=== PATIENT | female | born 1970 | race Caucasian/White ===

== ENCOUNTER 2024-09-17 19:32 | Emergency (ER) | payer MEDICARE, MEDICAID, SELFPAY ==
[2024-09-17 19:43] VITALS: BP 123/81; PULSE 63; RESP 14; TEMP 36.6; O2SAT 95
[2024-09-17 19:50] VITALS: BP 117/92; PULSE 55; RESP 17; O2SAT 95
--- NOTE | 2024-09-17 19:52 | EKG_ITS ---
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
[2024-09-17 19:54] VITALS: PULSE 66; RESP 18; O2SAT 96; BMI 31.3
--- NOTE | 2024-09-17 20:07 | PC.NURSE ---
SPOKE TO DANIELA FROM POISON CONTROL STATED TO MONITOR PATIENT X 6HRS. GIVE NARCAN FOR RESP DISTRESS. IF WITHDRAWAL OCCURS GIVE ANOTHER SUBOXONE THEN MONITOR ANOTHER 6 HRS. LABS- TYLENOL, ASA, BLOOD ALCOHOL, AND UDS.
--- NOTE | 2024-09-17 21:09 | XR_ITS ---
Examination: CT brain head without contrast. 2-D sagittal coronal reconstructions Date and time of exam:September 17, 2024 2156 hrs. Comparison April 21, 2022 Indications: Clinical diagnosis overdose with altered mental status beginning 2 hours ago, history dizziness headaches beginning 10 days ago with hydrocephalus history and ventricular peritoneal shunt tube placement CTDI: vol (mGy):55.4 DLP: (mGycm):1100 Technique: Multiple CT axial sections of the brain have been obtained, 5 mm slice thickness. Contrast has not been administered. 2-D sagittal, coronal reconstructions have been obtained Low dose protocols were performed. One or more of the following dose reduction techniques were used; automated exposure control, adjustment of the mA and/or KV according to patient size, use of iterative reconstruction technique. Findings: Ventricular peritoneal shunt tube right lateral ventricle satisfactory position Ventricles are normal in size Intra-axial or extra-axial hemorrhage density is not seen. No mass effect or midline shift Basal cisterns are not remarkable. Fourth ventricle is midline. Cranial vault intact. Impression: Ventricles are normal in size Negative for acute hemorrhage, mass effect or midline shift If symptoms persist, consider brain MRI follow-up
--- NOTE | 2024-09-17 21:09 | EKG_ITS ---
[facility] Test Date: 2024-09-17 Pat Name: LISSET ZENDEJAS Department: Room: - Gender: Female Teenage Babysitter: : 1970 Requested By: Lashae Ashby Order Number: [id number] Reading MD: Lashae Ashby Measurements Intervals [place] Rate: 49 P: 103 [place]: 197 QRS: -16 QRSD: 96 T: -29 QT: 434 QTc: 393 Interpretive Statements SINUS BRADYCARDIA LOW QRS VOLTAGE IN PRECORDIAL LEADS [QRS DEFLECTION < 1.0 mV IN CHEST LEADS] POSSIBLE ANTERIOR MYOCARDIAL INFARCTION , OF INDETERMINATE AGE [30 ms Q WAVE IN V3/V4, OR R < 0.2 mV IN V4] Compared to ECG 09/17/2024 20:02:11 Low QRS voltage now present Sinus rhythm no longer present Myocardial infarct finding still present /store/S0/[id number]/[id number].pdf
--- NOTE | 2024-09-17 21:09 | XR_ITS ---
Examination: Upright AP chest single view Technique: Upright AP portable chest single view Exam date and time: September 17, 2024 2117 hrs. Comparison April 13, 2024 Indications: Onset shortness of breath today. Findings: Mild prominence left ventricle Bibasilar pneumonia No pulmonary edema Old resection left clavicle Impression: Bibasilar pneumonia
[2024-09-17 21:10] LABS: Basophils # (Auto) 0.1 Thou/mm3 (0.0-0.2); Basophils % (Auto) 1 % (0-2.5); Eosinophils # (Auto) 0.2 Thou/mm3 (0.0-0.5); Eosinophils % (Auto) 3 % (0-10); Hematocrit 31.5 % (36.0-46.0); Hemoglobin 10.1 g/dL (12.0-16.0); Immature Granulocytes % (Auto) 0 % (0-0); Immature Granulocytes Auto 0.02 Thou/mm3 (0.00-0.00); Lymphocytes # (Auto) 2.6 Thou/mm3 (1.0-4.8); Lymphocytes % (Auto) 36 % (10-50); Mean Corpuscular HGB Conc 32.1 g/dl (31.0-37.0); Mean Corpuscular Hemoglobin 29.3 pg (25.0-35.0); Mean Corpuscular Volume 91 fL (80-100); Monocytes # (Auto) 0.5 Thou/mm3 (0.0-0.8); Monocytes % (Auto) 7 % (0-12); Neutrophils # (Auto) 3.9 Thou/mm3 (1.8-7.7); Neutrophils % (Auto) 53 % (37-80); Nucleated Red Blood Cell % 0 /100 WBC (0); Platelet Count 305 Thou/mm3 (140-440); RDW Standard Deviation 58.4 fL (36.4-46.3); Red Blood Count 3.45 Miln/mm3 (4.00-5.20); White Blood Count 7.2 Thou/mm3 (3.6-11.0)
--- NOTE | 2024-09-17 21:10 | EDNOTE_ITS ---
ED Overdose RME/HPI General Chief Complaint: Overdose Stated Complaint: OVERDOSE Time Seen by Provider: 09/17/24 20:00 Arrival date/time: 09/17/24 19:32 This is a 54-year-old female that was brought into the hospital for possible overdose. Per patient family at the bedside patient is altered. Per patient family patient was normal earlier today. Patient has no focal deficits. Patient appears sleepy. Upon assessment patient able to answer questions just drowsy. There was a suspicion per family that patient took too much of her Suboxone. Per patient family members patient has been on Suboxone for almost 2 years. Per patient family they are starting want Suboxone that are gone and then there were 16 pills left. Poison control contacted by primary RN and orders were to monitor patient in department for 6 hours, give Narcan as needed and if patient starts having withdrawal symptoms give patient Suboxone but the time of watching patient starts again for 6 hours. Patient has a history of a femur fracture that happened in April 09, 2024. Patient had been flown to [place] where left knee and left femur were fixed. Patient ambulates with a walker and uses a wheelchair at home. Per patient family members patient has a history of high blood pressure, hypothyroidism and pseudotumor cerebri and has a shunt in place. Patient drowsy on upon assessment patient states she has been urinating more often. Patient denies dysuria. Patient denies fever chills. patient reports that she has nausea vomiting diarrhea but that is not uncommon for her. Patient reported some chest pain a couple days back but not complaining of chest pain at this time. Related Data Home Medications ?Medication ?Instructions ?Recorded ?Confirmed cyclobenzaprine 10 mg tablet 10 mg PO BID 04/11/24 06/14/24 docusate sodium 100 mg capsule 100 mg PO BID 04/11/24 06/14/24 (Colace) escitalopram oxalate 10 mg tablet 10 mg PO QDAY 04/11/24 06/14/24 (Lexapro) gabapentin 100 mg capsule 200 mg PO TIDWM 04/11/24 06/14/24 hydrocodone 10 mg-acetaminophen 1 tab PO Q4H PRN Pain (Scale Score 04/11/24 06/14/24 325 mg tablet 4-6) hydrocodone 5 mg-acetaminophen 325 1 tab PO Q4H PRN Pain (Scale Score 04/11/24 06/14/24 mg tablet 1-3) levothyroxine 100 mcg capsule 100 mcg PO ACBR 04/11/24 06/14/24 meclizine 25 mg tablet 25 mg PO Q6H PRN dizziness 04/11/24 06/14/24 multivitamin 1 tab PO QAM 04/11/24 06/14/24 Previous Rx's ?Medication ?Instructions ?Recorded acetaminophen 300 mg-codeine 30 mg 1 tab PO BID PRN pain #7 tabs 05/01/24 tablet apixaban 5 mg tablet (Eliquis) 5 mg PO Q12H #30 tabs 05/01/24 doxycycline hyclate 100 mg tablet 100 mg PO BID #14 tabs 09/17/24 Allergies Allergy/AdvReac Type Severity Reaction Status Date / Time amoxicillin Allergy Severe ANAPHYLAXIS Verified 06/14/24 08:13 ibuprofen Allergy Severe Swelling Verified 06/14/24 08:13 of Lip/Tongue/Throat naproxen [From Aleve] Allergy Severe Swelling Verified 06/14/24 08:13 of Lip/Tongue/Throat ALLI Allergy Severe Rash Uncoded 06/14/24 08:13 Review of Systems Review of Systems Systems Reviewed: All systems reviewed, normal except as documented Past Medical History Past Medical History CARDIAC: Positive Hypertension; Negative Cardiac Disorders or Congestive Heart Failure RESPIRATORY: Negative Chronic Obstructive Pulmonary Disease (COPD) or Asthma GENITOURINARY: Negative Renal Disease ENDOCRINE: Negative Diabetes Mellitus Type 1 or Diabetes Mellitus Type 2 HEMATOLOGIC: Negative Sickle Cell Disease OTHER HISTORY: Positive Blood Transfusions Surgical History SURGICAL: Positive Open Reduction Internal Fixation (Left Femur) Social History SMOKING STATUS: Never smoker ED Exam General General appearance: Present alert and in no apparent distress Head Head exam: Present atraumatic Eye Eye exam: Present normal appearance, PERRL and EOMI ENT ENT exam: Present normal exam, normal oropharynx and mucous membranes moist Neck Neck exam: Present normal inspection, full ROM and trachea midline Chest Chest inspection: Present normal inspection and symmetric chest wall rise Respiratory Respiratory exam: Present normal lung sounds bilaterally Cardiovascular Cardiovascular exam: Present regular rate, normal rhythm and normal heart sounds Abdominal Exam Abdominal exam: Present soft and other (soft nontender ) Extremities Exam Extremities exam: Present full ROM Back Exam Back exam: Present normal inspection and full ROM Neurological Exam Neurological exam: Present alert and oriented X3 Psychiatric Psychiatric exam: Present normal affect and normal mood Skin Skin exam: Present warm, dry, intact and normal color Course Quality Measures none Orders Category Date Time Status EKG (ED ONLY) *Do not use* NOW Care 09/17/24 19:52 Completed EKG (ED ONLY) *Do not use* NOW Care 09/17/24 21:[address] head/brain wo con Stat Exams 09/17/24 21:09 Completed EKG (ED Only) Stat Exams 09/17/24 19:52 Draft EKG (ED Only) Stat Exams 09/17/24 21:09 Draft XR chest 1V Stat Exams 09/17/24 21:09 Completed Ammonia Stat Lab 09/17/24 20:58 Completed BNP [B-Type Natriuretic Peptide] Stat Lab 09/17/24 20:58 Completed CBC Stat Lab 09/17/24 20:58 Completed Comprehensive Metabolic Panel Stat Lab 09/17/24 20:58 Completed Drug Screen,Urine Stat Lab 09/17/24 21:36 Completed Salicylate Stat Lab 09/17/24 20:58 Completed Troponin I Stat Lab 09/17/24 20:58 Completed Urinalysis, C/S if Indicated Stat Lab 09/17/24 21:35 Completed Acetaminophen Tab [Tylenol ES Tab] Med 09/17/24 20:14 Discontinued 1,000 mg PO X1 ONE Azithromycin Po [Zithromax PO] Med 09/17/24 23:13 Discontinued 500 mg PO X1 ONE Doxycycline [Vibramycin] Med 09/17/24 23:22 Discontinued 100 mg PO X1 ONE Vital Signs Vital signs: Vital Signs Temperature 97.9 F 09/17/24 19:43 Pulse Rate 63 09/17/24 19:43 Respiratory Rate 14 09/17/24 19:43 Blood Pressure 123/81 09/17/24 19:43 Pulse Oximetry (%) 95 09/17/24 19:43 Oxygen Delivery Method Room Air 09/17/24 19:43 Procedures -ED EKG Interpretation #1: Date of EK09/17/24 Time of EK:31 Rate: 49 Interpretation: Interpreted by me (sinus bradycardia, flipped t waves in anterior leads) EKG Impression: No ectopy, Normal QRS and Normal intervals Overdose MDM Narrative MDM Narrative:: This is a 54-year-old female that was brought into the hospital for possible overdose. Per patient family at the bedside patient is altered. Per patient family patient was normal earlier today. Patient has no focal deficits. Patient appears sleepy. Upon assessment patient able to answer questions just drowsy. There was a suspicion per family that patient took too much of her Suboxone. Per patient family members patient has been on Suboxone for almost 2 years. Per patient family they are starting want Suboxone that are gone and then there were 16 pills left. Poison control contacted by primary RN and orders were to monitor patient in department for 6 hours, give Narcan as needed and if patient starts having withdrawal symptoms give patient Suboxone but the time of watching patient starts again for 6 hours. Patient has a history of a femur fracture that happened in April 09, 2024. Patient had been flown to [place] where left knee and left femur were fixed. Patient ambulates with a walker and uses a wheelchair at home. Per patient family members patient has a history of high blood pressure, hypothyroidism and pseudotumor cerebri and has a shunt in place. Patient drowsy on upon assessment patient states she has been urinating more often. Patient denies dysuria. Patient denies fever chills. patient reports that she has nausea vomiting diarrhea but that is not uncommon for her. Patient reported some chest pain a couple days back but not complaining of chest pain at this time. CT head: Findings: Ventricular peritoneal shunt tube right lateral ventricle satisfactory position Ventricles are normal in size Intra-axial or extra-axial hemorrhage density is not seen. No mass effect or midline shift Basal cisterns are not remarkable. Fourth ventricle is midline. Cranial vault intact. Impression: Ventricles are normal in size Negative for acute hemorrhage, mass effect or midline shift If symptoms persist, consider brain MRI follow-up Chest x ray: Findings: Mild prominence left ventricle Bibasilar pneumonia No pulmonary edema Old resection left clavicle Impression: Bibasilar pneumonia Labs unremarkable. Potassium slightly low at 3.3. Pt positive for opiates in urine. Chest x ray shows pneumonia. Will tx for pneumonia. Will observe patient as instructed by posion control. Patient data External records reviewed:: [facility] previous records Clinical information provided by:: patient Social determinants that could affect healthcare access:: substance use Patient has the following chronic illnesses:: see note How is presenting disease/condition affected by chronic disease/condition?: exacerbated by Evaluation data The following diagnostics were reviewed and interpreted by me:: lab results, radiology exam(s) and EKG tracing(s) Lab and/or radiology exams considered but not ordered:: none Interpretation Summary: see note Medications / Prescriptions Medications or Prescriptions considered but not ordered:: none Medication administrations:: Medication Administration History Discontinued Medications Acetaminophen (Acetaminophen 500 Mg Tablet) 1,000 mg PO X1 ONE Stop: 09/17/24 20:15 Last Admin: 09/17/24 21:44 Dose: 1,000 mg Documented By: VOLODYMYR Azithromycin (Azithromycin 250 Mg Tablet) 500 mg PO X1 ONE Stop: 09/17/24 23:14 Last Admin: 09/17/24 23:23 Dose: Not Given Documented By: VOLODYMYR Non-Admin Reason: Discontinued Doxycycline Hyclate (Doxycycline 100 Mg Tablet) 100 mg PO X1 ONE Stop: 09/17/24 23:23 Last Admin: 09/17/24 23:32 Dose: 100 mg Documented By: VOLODYMYR see [facility] Consultations Consultation(s) initiated? (list below): No Diagnosis Overdose Differential Diagnosis: suicide attempt by multiple drug overdose, poisoning by opiate or related narcotic and other (stroke, mi, pneumonia ) Most likely diagnosis given after review of the tests above:: pneumonia Admission Indicated Admission indicated?: not indicated Admission Request Was there a request for admission?: No Disposition Plan Disposition Plan: Discharge Discharge Attestation Discharge Attestation: The patient and all family members were given an opportunity to ask questions and understood the discharge instructions. Discharge instructions specifically effects, indications for sooner follow up or return to the emergency department, and the expected course of current diagnosis. Patient condition: Stable Discharge Plan Plan Patient Disposition: HOME (Self Care) Patient condition on transfer: Stable Prescriptions/Referrals Prescriptions/Med Rec: New doxycycline hyclate 100 mg tablet 100 mg PO BID Qty: 14 0RF No Action cyclobenzaprine 10 mg Tablet 10 mg PO BID docusate sodium [Colace] 100 mg Capsule 100 mg PO BID gabapentin 100 mg Capsule 200 mg PO TIDWM escitalopram oxalate [Lexapro] 10 mg Tablet 10 mg PO QDAY hydrocodone-acetaminophen 5-325 mg Tablet 1 tab PO Q4H PRN (Reason: Pain (Scale Score 1-3)) hydrocodone-acetaminophen 10-325 mg Tablet 1 tab PO Q4H PRN (Reason: Pain (Scale Score 4-6)) multivitamin Tablet 1 tab PO QAM meclizine 25 mg tablet 25 mg PO Q6H PRN (Reason: dizziness) levothyroxine 100 mcg capsule 100 mcg PO ACBR Eliquis 5 mg tablet 5 mg PO Q12H Qty: 30 1RF acetaminophen-codeine 300-30 mg tablet 1 tab PO BID PRN (Reason: pain) Qty: 7 0RF Referrals: Yvette Reyes FNP [Primary Care Provider] - In 1 week Problem List Clinical Impression: Pneumonia Patient/Caregiver Discharge Instructions Discharge Activity: activity as tolerated Education Materials: ED Pneumonia (Adult) Additional Instructions: Please follow-up with primary provider in 1 to 2 days. Come back to the emergency room if symptoms change or worsen. Print Language: Singaporean Stand Alone Forms: Erica Award Info., Patient Portal Info Letter PA/DEVELOPMENT WRITER Supervising Physician MYLENE/MIGUEL Supervising Physician: donald
[2024-09-17 21:28] VITALS: BP 146/87; PULSE 53; RESP 16; O2SAT 95
[2024-09-17 21:30] LABS: Ammonia 14 uMol/L (11-32)
[2024-09-17 21:38] LABS: Alanine Aminotransferase < 7 U/L (10-49); Albumin, Serum 3.8 gm/dL (3.5-5.0); Albumin/Globulin Ratio 1.5 (1.2-2.2); Alkaline Phosphatase 111 U/L (46-116); Anion Gap 4 (7-16); Aspartate Amino Transferase 12 U/L (0-34); BUN/Creatinine Ratio 8 Ratio (12-20); Bilirubin,Total 0.4 mg/dL (0.3-1.2); Blood Urea Nitrogen 7 mg/dL (9-23); Calcium 8.9 mg/dL (8.3-10.6); Calcium (Corrected) 9.1 mg/dL (8.5-10.1); Carbon Dioxide 31.3 mMol/L (20.0-31.0); Chloride 104 mMol/L (98-107); Creatinine (Component) 0.9 mg/dL (0.6-1.3); Estimated Creatinine Clearance 81.7 mL/min (>60); Globulin 2.6 gm/dL (2.3-3.5); Glucose 89 mg/dL (74-106); Osmolality,Calculated 274 (275-295); Potassium 3.3 mMol/L (3.4-5.1); Salicylate < 3.0 mg/dL; Sodium 139 mMol/L (136-145); Total Protein 6.4 gm/dL (5.7-8.2); Troponin I < 0.002 ng/mL (0.0-0.045); eGFR > 60 See Note
[2024-09-17 21:40] LABS: Collection Type, Urine Voided
[2024-09-17] MEDS: ACETAMINOPHEN 500 MG TABLET 1000 MG PO (21:44)
[2024-09-17 21:45] LABS: Bilirubin,Urine Negative (Negative); Blood,Urine Negative (Negative); Clarity,Urine Clear (Clear/Hazy); Color,Urine Colorless (Lt Yel-Yel); Culture Indicated,Urine Not Indicated; Glucose, Urine Negative (Negative); Ketones,Urine Negative (Negative); Leukocyte Esterase,Urine Negative (Negative); Nitrite,Urine Negative (Negative); Protein,Urine Negative (Neg - Trace); RBC,Urine < 1 /hpf (0-3); Specific Gravity,Urine 1.005 (1.001-1.035); Squamous Epithelial Cell,Urine < 1 /hpf (0-5); Urobilinogen,Urine Negative mg/dL (0.0-1.0); WBC,Urine 1 /hpf (0-5)
[2024-09-17 21:51] LABS: B-Type Natriuretic Peptide 39 pg/mL (0-100)
[2024-09-17 22:03] VITALS: BP 154/92; PULSE 64; RESP 17; O2SAT 97
[2024-09-17 22:07] LABS: Amphetamine/Methamp Scrn,U Negative (Negative); Barbiturate Screen,Urine Negative (Negative); Benzodiazepines Screen,Urine Negative (Negative); Benzoylecgonine Screen, Ur Negative (Negative); Fentanyl Screen,Urine Negative (Negative); Opiate Screen,Urine Positive (Negative); THC Screen,Urine Negative (Negative)
[2024-09-17 23:00] VITALS: BP 133/80; PULSE 49; RESP 12; O2SAT 97
--- NOTE | 2024-09-17 23:14 | PD.EDADDENDU ---
Emergency Room Addendum Addendum Narrative: 2300: Care assumed from Lashae Ashby NP Past medical, surgical, social and family history reviewed. Vitals and home medications reviewed. Results and treatment plan discussed. I will assume the care of the patient at this time and will follow the patient, pending observation. Please refer to the emergency department record for history and examination from initial visit. OBSERVATION NOTE: The patient was placed in ED observation care at 09/17/2024 at 2300 The patient was placed in ED observation care because of pending transfer.. The patients past medical history, social history, and family history were reviewed. The plan of care will include serial examinations. Patient was previously observed for 2 hours by the previous provider.
[2024-09-17] MEDS: DOXYCYCLINE 100 MG TABLET PO (23:32)
[2024-09-18] VITALS: BP 134/79; PULSE 45; RESP 15; O2SAT 95
[2024-09-18 01:00] VITALS: BP 108/78; PULSE 48; RESP 13; O2SAT 95
[2024-09-18 01:30] VITALS: BP 122/70; PULSE 73; RESP 18; O2SAT 97
== END 2024-09-18 01:54 | disposition home or self-care (01) ==
PROVIDERS: Nurse Practitioner Family; Emergency Provider Emergency Medicine; PCP Nurse Practitioner Family
DX: T50.7X1A Poisoning by analeptics and opioid receptor antagonists, accidental (unintentional), initial encounter (principal); R41.82 Altered mental status, unspecified; J18.9 Pneumonia, unspecified organism; R00.1 Bradycardia, unspecified
CPT/HCPCS: 36415; 70450; 71045; 80053; 80307; 80329; 81001; 82140; 83880; 84484; 85025; 93005; 96127; 99284; A9270; G0480

== ENCOUNTER 2024-11-01 09:22 | Outpatient (AMB) | payer MEDICARE, MEDICAID, SELFPAY ==
[2024-11-01 10:21] VITALS: BP 134/86; PULSE 67; RESP 19; TEMP 36.6; O2SAT 98; BMI 37.9
--- NOTE | 2024-11-01 10:21 | ORTHONT_ITS ---
Vital signs 11/01/24 10:21 Height 1.7 m Height Method Stated Weight 109.883 kg Weight Measurement Method Standing Scale BMI 37.9 BP 134/86 H Blood Pressure Source Automatic Cuff Blood Pressure Location Left Upper Arm Position Sitting Respiration 19 Pulse 67 Pulse Source Monitor Temp 97.8 F Temp Source Temporal Artery Scan Pulse Oximetry (%) 98 Oxygen Delivery Method Room Air Med/Allergies Allergies & Medications Allergies amoxicillin Allergy (Severe, Verified 11/01/24 10:22) ANAPHYLAXIS ibuprofen Allergy (Severe, Verified 11/01/24 10:22) Swelling of Lip/Tongue/Throat naproxen [From Aleve] Allergy (Severe, Verified 11/01/24 10:22) Swelling of Lip/Tongue/Throat ALLI Allergy (Severe, Uncoded 11/01/24 10:22) Rash Medication Reconciliation cyclobenzaprine 10 mg tablet 10 mg PO BID 04/11/24 [History Confirmed 11/01/24] docusate sodium 100 mg capsule (Colace) 100 mg PO BID 04/11/24 [History Confirmed 11/01/24] escitalopram oxalate 10 mg tablet (Lexapro) 10 mg PO QDAY 04/11/24 [History Confirmed 11/01/24] gabapentin 100 mg capsule 200 mg PO TIDWM 04/11/24 [History Confirmed 11/01/24] hydrocodone 10 mg-acetaminophen 325 mg tablet 1 tab PO Q4H PRN Pain (Scale Score 4-6) 04/11/24 [History Confirmed 11/01/24] hydrocodone 5 mg-acetaminophen 325 mg tablet 1 tab PO Q4H PRN Pain (Scale Score 1-3) 04/11/24 [History Confirmed 11/01/24] levothyroxine 100 mcg capsule 100 mcg PO ACBR 04/11/24 [History Confirmed 11/01/24] meclizine 25 mg tablet 25 mg PO Q6H PRN dizziness 04/11/24 [History Confirmed 11/01/24] multivitamin 1 tab PO QAM 04/11/24 [History Confirmed 11/01/24] acetaminophen 300 mg-codeine 30 mg tablet 1 tab PO BID PRN pain #7 tabs 05/01/24 [Rx Confirmed 11/01/24] apixaban 5 mg tablet (Eliquis) 5 mg PO Q12H #30 tabs 05/01/24 [Rx Confirmed 11/01/24] doxycycline hyclate 100 mg tablet 100 mg PO BID #14 tabs 09/17/24 [Rx Confirmed 11/01/24] Exam Exam Patient is in no acute distress and is cooperative with the examination today. Patient has a normal mood and affect. Breathing is nonlabored. In no respiratory distress. Bilateral extremities were evaluated and demonstrates sensation intact to light touch. Palpable pedal pulses are present. No significant edema is present. Left hip and knee incisions are clean dry intact. Range of motion is 5 to 80 degrees. Sensations intact to light touch Assessment and Plan Problem List (1) Femur fracture: Qualifiers: Femur location: shaft Status: Acute Plan: Patient is a 54-year-old female with a left distal femur fracture status post open reduction total fixation and nail plate combo. He has been weightbearing as tolerated. She is doing well. We recommend continued use of a walker. She should start outpatient physical therapy at this time. She never started physical therapy because she went to [place]. Will get new x- rays as it Has been a while since we last saw x-rays. We will see her back in approximately 2 months Office Procedures GNS Level of Care Nursing/Assessment Patient Status: Established Patient Nursing Assessment/Reassesment: Medication Reconciliation, Update PMH in EMR and Vital Signs Coordination of Care: Complex Care and Chronic Disease 1-5, Education Complex Pt/Fam, Consent,records obtained, informed consent, 1 Ins Authorization, Results/Orders obtained and Staff clarify orders Established Patient Charge Established Patient Point Assignment: 110 Established Patient Point Charge: EP Level 3 (80-115) MA Intake Visit Data Collection New Patient or Established: Established Patient (seen at [facility] within 3 years) Reason for Visit:: FOLLOW UP FEMUR Seen by Clinical Staff ONLY (RN/MA): No Remedial [place] Required: No PCP or OBGYN visit in last 3 months: Yes Hx Now: No Do You Feel Safe at Home: Yes Authorities Contacted: N/A Questionairres Past Medical History Past Medical History Have you ever been diagnosed with any of the following: Cardiology Problems Congestive Heart Failure: No Hypertension: Yes Respiratory Problems Chronic Obstructive Pulmonary Disease (COPD): No Asthma: No Smoking: No Smoking Exposure: No Genital/Urinary Problems Renal Disease: No Endocrine Problems Diabetes Mellitus Type 1: No Diabetes Mellitus Type 2: No Blood Problems Sickle Cell Disease: No Other Problems Blood Transfusions: Yes Subjective Visit Visit for: follow up visit Immunization / Flu Flu Vaccine in the Last 12 Months: No Flu Vaccine Exclusion Criteria: Refused by Patient History of Present Illness Chief complaint: Left hip pain and leg pain Cindy is a pleasant 54-year-old female with left hip and thigh and knee pain. She had a extensive surgery 6 months ago including a nail plate combo for a comminuted distal femur fracture. She has been in [place] for a while since we last saw her. She does not have new x-rays and we will obtain them today. She is walking with a limp and Has a Trendelenburg gait Pain Pain level (0-10): 5 Pain duration: ALL DAY Pain location: groin, inside (medial), outside (lateral) and anterior Pain quality: sharp, dull, aching and other (specify) (THROBBINH) Pain timing: increases with activity and stairs Associated signs & symptoms: weakness and stiffness Ambulatory data Ambulatory device: walker Treatments Improvement with previous injections: No Improvement with PT: No Improvement with NSAIDS: no Review of Systems Review of Systems: All systems negative unless otherwise noted in HPI.
== END 2024-11-01 10:48 | disposition home or self-care (01) ==
LOC: HODSRG 09:22
PROVIDERS: PCP Nurse Practitioner Family; Referring Provider Nurse Practitioner Family; Supervising Provider Orthopaedic Surgery Adult Reconstructive Orthopaedic Surgery; Visit Provider Orthopaedic Surgery Adult Reconstructive Orthopaedic Surgery
DX: S72.402D Unspecified fracture of lower end of left femur, subsequent encounter for closed fracture with routine healing (principal); X58.XXXD Exposure to other specified factors, subsequent encounter; Z98.890 Other specified postprocedural states; M25.552 Pain in left hip; M25.562 Pain in left knee; I10 Essential (primary) hypertension
CPT/HCPCS: 99213; G0463

== ENCOUNTER → 2024-11-08 | Outpatient (CLI) | payer MEDICARE, MEDICAID, SELFPAY ==
--- NOTE | 2024-11-08 10:20 | XR_ITS ---
Examination: Left knee 4 views TECHNIQUE: AP oblique lateral axial left knee 4 views Exam date and time: October 08, 2025 1105 hours INDICATIONS: Femur surgery 6 months ago with increasing knee pain the last 2 months FINDINGS: Advanced tricompartment osteoarthrosis left knee, severe narrowing medial joint space [id number] Significant healing comminuted supracondylar fracture distal femur with satisfactory position orthopedic hardware No acute fracture IMPRESSION: Advanced tricompartment osteoarthritis, severe narrowing medial joint space
--- NOTE | 2024-11-08 10:20 | XR_ITS ---
Examination: Left femur 2 views Technique one AP lateral left femur 2 views Exam date and time: November 08, 2024 1111 hours INDICATIONS: History femur fracture post surgery operative reduction internal fixation tibial fracture 6 months ago increasing pain in the femur the last 2 months FINDINGS: Postop reduction internal fixation comminuted supracondylar fracture distal femoral shaft Significant healing Satisfactory alignment Satisfactory position orthopedic hardware Advanced osteoarthritis medial joint space IMPRESSION: Significant healing supracondylar comminuted fracture distal femur with satisfactory alignment
[2024-11-08 13:03] LABS: Free T4 (Free Thyroxine) 0.75 ng/dL (0.89-1.76); Thyroid Stimulating Hormone 33.92 uIU/mL (0.55-4.78)
== END | disposition home or self-care (01) ==
PROVIDERS: PCP Nurse Practitioner Family; Referring Provider Orthopaedic Surgery Adult Reconstructive Orthopaedic Surgery; Visit Provider Radiology Diagnostic Radiology
DX: M16.12 Unilateral primary osteoarthritis, left hip (principal)
CPT/HCPCS: 36415; 73552; 73564; 84439; 84443

== ENCOUNTER 2024-11-11 13:47 | Outpatient (AMB) | payer MEDICARE, MEDICAID, SELFPAY ==
[2024-11-11 14:02] VITALS: BP 148/96; PULSE 70; RESP 18; TEMP 35.4; O2SAT 97; BMI 37.5
--- NOTE | 2024-11-11 14:02 | ORTHONT_ITS ---
Vital signs 11/11/24 14:02 Height 1.7 m Height Method Stated Weight 108.55 kg Weight Measurement Method Standing Scale BMI 37.5 BP 148/96 H Blood Pressure Source Automatic Cuff Blood Pressure Location Right Upper Arm Position Sitting Respiration 18 Pulse 70 Pulse Source Monitor Temp 95.7 F L Temp Source Temporal Artery Scan Pulse Oximetry (%) 97 Oxygen Delivery Method Room Air Med/Allergies Allergies & Medications Allergies amoxicillin Allergy (Severe, Verified 11/11/24 14:04) ANAPHYLAXIS ibuprofen Allergy (Severe, Verified 11/11/24 14:04) Swelling of Lip/Tongue/Throat naproxen [From Aleve] Allergy (Severe, Verified 11/11/24 14:04) Swelling of Lip/Tongue/Throat ALLI Allergy (Severe, Uncoded 11/11/24 14:04) Rash Medication Reconciliation cyclobenzaprine 10 mg tablet 10 mg PO BID 04/11/24 [History Confirmed 11/11/24] escitalopram oxalate 10 mg tablet (Lexapro) 10 mg PO QDAY 04/11/24 [History Confirmed 11/11/24] gabapentin 100 mg capsule 200 mg PO TIDWM 04/11/24 [History Confirmed 11/11/24] hydrocodone 10 mg-acetaminophen 325 mg tablet 1 tab PO Q4H PRN Pain (Scale Score 4-6) 04/11/24 [History Confirmed 11/11/24] hydrocodone 5 mg-acetaminophen 325 mg tablet 1 tab PO Q4H PRN Pain (Scale Score 1-3) 04/11/24 [History Confirmed 11/11/24] levothyroxine 100 mcg capsule 100 mcg PO ACBR 04/11/24 [History Confirmed 11/11/24] meclizine 25 mg tablet 25 mg PO Q6H PRN dizziness 04/11/24 [History Confirmed 11/11/24] multivitamin 1 tab PO QAM 04/11/24 [History Confirmed 11/11/24] acetaminophen 300 mg-codeine 30 mg tablet 1 tab PO BID PRN pain #7 tabs 05/01/24 [Rx Confirmed 11/11/24] apixaban 5 mg tablet (Eliquis) 5 mg PO Q12H #30 tabs 05/01/24 [Rx Confirmed 11/11/24] doxycycline hyclate 100 mg tablet 100 mg PO BID #14 tabs 09/17/24 [Rx Confirmed 11/11/24] Exam Exam Patient is in no acute distress and is cooperative with the examination today. Patient has a normal mood and affect. Breathing is nonlabored. In no respiratory distress. Bilateral extremities were evaluated and demonstrates sensation intact to light touch. Palpable pedal pulses are present. No significant edema is present. Left hip and knee incisions are clean dry intact. Range of motion is 5 to 80 degrees. Sensations intact to light touch X-rays demonstrate a nail plate combo with good interval healing of the fracture site Assessment and Plan Problem List (1) Femur fracture: Qualifiers: Femur location: shaft Status: Acute Plan: Patient is a 54-year-old female with a left distal femur fracture status post open reduction total fixation and nail plate combo. He has been weightbearing as tolerated. She is doing well. We recommend continued use of a walker. She should start outpatient physical therapy at this time. She never started physical therapy because she went to [place]. Her x-rays look good and we will start her with physical therapy. She does have a Trendelenburg gait Office Procedures GNS Level of Care Nursing/Assessment Patient Status: Established Patient Nursing Assessment/Reassesment: Medication Reconciliation, Update PMH in EMR and Vital Signs Coordination of Care: Complex Care and Chronic Disease 1-5, Education Complex Pt/Fam, Consent,records obtained, informed consent, Results/Orders obtained and Staff clarify orders Established Patient Charge Established Patient Point Assignment: 95 Established Patient Point Charge: EP Level 2 (40-75) Questionairres Past Medical History Past Medical History Have you ever been diagnosed with any of the following: Cardiology Problems Congestive Heart Failure: No Hypertension: Yes Respiratory Problems Chronic Obstructive Pulmonary Disease (COPD): No Asthma: No Smoking: No Smoking Exposure: No Genital/Urinary Problems Renal Disease: No Endocrine Problems Diabetes Mellitus Type 1: No Diabetes Mellitus Type 2: No Blood Problems Sickle Cell Disease: No Other Problems Blood Transfusions: Yes Subjective Visit Visit for: follow up visit Immunization / Flu Flu Vaccine in the Last 12 Months: Yes Flu Vaccine Exclusion Criteria: Already Received History of Present Illness Chief complaint: F/U XRAYS RESULTS Cindy is a pleasant 54-year-old female with left hip and thigh and knee pain. She had a extensive surgery 6 months ago including a nail plate combo for a comminuted distal femur fracture. She has been in [place] for a while since we last saw her. She does not have new x-rays and we will obtain them today. She is walking with a limp and Has a Trendelenburg gait Pain Pain level (0-10): 5 Pain duration: CONSTANT Pain location: inside (medial) Pain quality: sharp, dull and aching Pain timing: night, increases with activity and stairs Associated signs & symptoms: none Ambulatory data Ambulatory device: none Treatments Improvement with previous injections: No Improvement with PT: No Improvement with NSAIDS: n/a Review of Systems Review of Systems: All systems negative unless otherwise noted in HPI.
== END 2024-11-11 14:11 | disposition home or self-care (01) ==
LOC: HODSRG 13:47
PROVIDERS: PCP Nurse Practitioner Family; Referring Provider Nurse Practitioner Family; Supervising Provider Orthopaedic Surgery Adult Reconstructive Orthopaedic Surgery; Visit Provider Orthopaedic Surgery Adult Reconstructive Orthopaedic Surgery
DX: S72.492D Other fracture of lower end of left femur, subsequent encounter for closed fracture with routine healing (principal); X58.XXXD Exposure to other specified factors, subsequent encounter; Z98.890 Other specified postprocedural states; R26.89 Other abnormalities of gait and mobility; I10 Essential (primary) hypertension
CPT/HCPCS: 99212; G0463

== ENCOUNTER 2024-12-22 13:27 | Outpatient (AMB) | payer MEDICARE, MEDICAID, SELFPAY ==
--- NOTE | 2024-12-22 13:51 | PD.ORTHCLVIS ---
Vital signs 12/22/24 13:52 Height 1.7 m Height Method Stated Weight 102.597 kg Weight Measurement Method Standing Scale BMI 35.4 BP 122/84 Blood Pressure Source Automatic Cuff Blood Pressure Location Left Upper Arm Position Sitting Respiration 19 Pulse 73 Pulse Source Monitor Temp 96.5 F L Temp Source Temporal Artery Scan Pulse Oximetry (%) 96 Oxygen Delivery Method Room Air Med/Allergies Allergies & Medications Allergies amoxicillin Allergy (Severe, Verified 12/22/24 13:53) ANAPHYLAXIS ibuprofen Allergy (Severe, Verified 12/22/24 13:53) Swelling of Lip/Tongue/Throat naproxen (From Aleve) Allergy (Severe, Verified 12/22/24 13:53) Swelling of Lip/Tongue/Throat ALLI Allergy (Severe, Uncoded 12/22/24 13:53) Rash Medication Reconciliation cyclobenzaprine 10 mg tablet 10 mg PO BID 04/11/24 [History Confirmed 12/22/24] escitalopram oxalate 10 mg tablet (Lexapro) 10 mg PO QDAY 04/11/24 [History Confirmed 12/22/24] gabapentin 100 mg capsule 200 mg PO TIDWM 04/11/24 [History Confirmed 12/22/24] hydrocodone 10 mg-acetaminophen 325 mg tablet 1 tab PO Q4H PRN Pain (Scale Score 4-6) 04/11/24 [History Confirmed 12/22/24] hydrocodone 5 mg-acetaminophen 325 mg tablet 1 tab PO Q4H PRN Pain (Scale Score 1-3) 04/11/24 [History Confirmed 12/22/24] levothyroxine 100 mcg capsule 100 mcg PO ACBR 04/11/24 [History Confirmed 12/22/24] meclizine 25 mg tablet 25 mg PO Q6H PRN dizziness 04/11/24 [History Confirmed 12/22/24] multivitamin 1 tab PO QAM 04/11/24 [History Confirmed 12/22/24] acetaminophen 300 mg-codeine 30 mg tablet 1 tab PO BID PRN pain #7 tabs 05/01/24 [Rx Confirmed 12/22/24] apixaban 5 mg tablet (Eliquis) 5 mg PO Q12H #30 tabs 05/01/24 [Rx Confirmed 12/22/24] doxycycline hyclate 100 mg tablet 100 mg PO BID #14 tabs 09/17/24 [Rx Confirmed 12/22/24] Exam Exam Patient is in no acute distress and is cooperative with the examination today. Patient has a normal mood and affect. Breathing is nonlabored. In no respiratory distress. Bilateral extremities were evaluated and demonstrates sensation intact to light touch. Palpable pedal pulses are present. No significant edema is present. Left hip and knee incisions are clean dry intact. Range of motion is 5 to 80 degrees. Sensations intact to light touch X-rays demonstrate a nail plate combo with good interval healing of the fracture site Assessment and Plan Problem List (1) Femur fracture: Qualifiers: Femur location: shaft Status: Acute Plan: Patient is a 54-year-old female with a left distal femur fracture status post open reduction total fixation and nail plate combo. SHe has been weightbearing as tolerated. She is doing well and is not using a walker or cane. She would like a cortisone injection today. Recommend knee cortisone injection as patient would like to proceed with conservative treatment at this time. The risks and benefits of the procedure were reviewed with the patient and patient gave verbal consent to continue with the procedure. Procedure: performed by Dr. Hernandez Using sterile technique the left knee was thoroughly prepped with alcohol, and approximately 1 cc of Kenalog 40 mg/mL and 4 cc of 1% lidocaine was injected without resistance into the medial tibial femoral joint space. The patient tolerated the procedure. Office Procedures GNS Level of Care Nursing/Assessment Patient Status: Established Patient Nursing Assessment/Reassesment: Medication Reconciliation, Update PMH in EMR and Vital Signs Coordination of Care: Complex Care and Chronic Disease 1-5, Education Complex Pt/Fam, Consent,records obtained, informed consent, Results/Orders obtained and Staff clarify orders Established Patient Charge Established Patient Point Assignment: 95 Established Patient Point Charge: EP Level 3 (80-115) Surgical Proc/IM SQ injection Major Surgical Procedure: Yes (KNEE INJECTION ) Medication Given Medication Given Medication Given: Yes Documented Dose Given: 4 Route: Infiitration Medication Given Medication Given Medication Given: Yes Route: Infiitration Office Meds Xylocaine 10 mg/mL (1 %) injection solution Performing Provider: Chauncey Hernandez MD Performing Location: [facility] Administered by: Chauncey Hernandez MD on 12/22/24 14:08 Dose Route Admin Location Dispensed Lot Number Expiration Date [facility] Fire Prevention Engineer 20 mL Infiltration 20 mL [id number] [facility] triamcinolone acetonide 40 mg/mL suspension for injection Performing Provider: Chauncey Hernandez MD Performing Location: [facility] Administered by: Chauncey Hernandez MD on 12/22/24 14:08 Dose Route Admin Location Dispensed Lot Number Expiration Date [facility] Fire Prevention Engineer 40 mg intra-articular KNEE 1 mL [id number] 03/02/26 7677-9842-44 [employer]EVA PARENTERAL MA Intake Visit Data Collection New Patient or Established: Established Patient (seen at [facility] within 3 years) Reason for Visit:: 6 WEEK F/U FEMUR FRACTURE Seen by Clinical Staff ONLY (RN/MA): No Station Tender Required: No PCP or OBGYN visit in last 3 months: Yes Hx Now: No Do You Feel Safe at Home: Yes Authorities Contacted: N/A Questionairres Past Medical History Past Medical History Have you ever been diagnosed with any of the following: Cardiology Problems Congestive Heart Failure: No Hypertension: Yes Respiratory Problems Chronic Obstructive Pulmonary Disease (COPD): No Asthma: No Smoking: No Smoking Exposure: No Genital/Urinary Problems Renal Disease: No Endocrine Problems Diabetes Mellitus Type 1: No Diabetes Mellitus Type 2: No Blood Problems Sickle Cell Disease: No Other Problems Blood Transfusions: Yes Subjective Visit Visit for: follow up visit Immunization / Flu Flu Vaccine in the Last 12 Months: No Flu Vaccine Exclusion Criteria: No Exclusion Criteria History of Present Illness Chief complaint: F/U XRAYS RESULTS Cindy is a pleasant 54-year-old female with left hip and thigh and knee pain. She had a extensive surgery 8 months ago including a nail plate combo for a comminuted distal femur fracture. She has been in [place] for a while since we last saw her. She has been doing well with pt Pain Pain level (0-10): 7 Pain duration: WITH MOVEMENT Pain location: anterior (KNEE) Pain quality: aching Pain timing: increases with activity Associated signs & symptoms: none Ambulatory data Ambulatory device: none Treatments Improvement with previous injections: No Improvement with PT: No Improvement with NSAIDS: no Review of Systems Review of Systems: All systems negative unless otherwise noted in HPI.
[2024-12-22 13:52] VITALS: BP 122/84; PULSE 73; RESP 19; TEMP 35.8; O2SAT 96; BMI 35.4
== END 2024-12-22 14:27 | disposition home or self-care (01) ==
LOC: HODSRG 13:27
PROVIDERS: PCP Nurse Practitioner Family; Referring Provider Nurse Practitioner Family; Supervising Provider Orthopaedic Surgery Adult Reconstructive Orthopaedic Surgery; Visit Provider Orthopaedic Surgery Adult Reconstructive Orthopaedic Surgery
DX: S72.402D Unspecified fracture of lower end of left femur, subsequent encounter for closed fracture with routine healing (principal); X58.XXXD Exposure to other specified factors, subsequent encounter; I10 Essential (primary) hypertension
CPT/HCPCS: 20610; 99213; J3301; J3490; G0463

== ENCOUNTER → 2025-02-03 | Outpatient (CLI) | payer MEDICARE, MEDICAID, SELFPAY ==
--- NOTE | 2025-02-03 10:29 | XR_ITS ---
Examination: Tibia-Fibula, left , 2 views Technique: Tibia-fibula AP lateral 2 views Date and time of exam: February 03, 2025 1121 hours INDICATIONS: Lower leg pain beginning 3 days ago FINDINGS: Postsurgical defects in the proximal and mid tibial shaft Moderate tricompartment knee osteoarthritis No fracture of the lower leg No cortical bone destruction IMPRESSION: No fracture or cortical bone destruction
--- NOTE | 2025-02-03 10:29 | XR_ITS ---
Examination: Left femur 2 views Technique one AP lateral right femur 2 views Exam date and time: February 03, 2025 1123 hours Comparison November 08, 2024 INDICATIONS: History femur fracture postop reduction internal fixation April 2024 FINDINGS: Moderate osteopenia Mild narrowing left hip joint Comminuted fractures distal femoral shaft with stable and satisfactory alignment, significant healing Orthopedic hardware including intramedullary elen satisfactory position Advanced tricompartment knee osteoarthritis IMPRESSION: Healed fractures distal femoral shaft with stable and satisfactory alignment Advanced left knee tricompartment osteophytes arthritis
--- NOTE | 2025-02-03 10:29 | XR_ITS ---
Examination: Left knee 4 views TECHNIQUE: Standing PA lateral oblique axial left knee 4 views Exam date and time: February 03, 2025 1135 hours INDICATIONS: Left knee pain beginning 3 days ago, history femur surgery April 2024 FINDINGS: Advanced tricompartment osteoarthritis left knee, most severe medial patellofemoral joints Status post operative reduction internal fixation fracture distal femur with significant healing Orthopedic hardware satisfactory position No acute fracture IMPRESSION: Advanced left knee tricompartment osteoarthritis
== END | disposition home or self-care (01) ==
PROVIDERS: PCP Physician Assistant; Referring Provider Orthopaedic Surgery Adult Reconstructive Orthopaedic Surgery; Visit Provider Orthopaedic Surgery Adult Reconstructive Orthopaedic Surgery
DX: M17.12 Unilateral primary osteoarthritis, left knee (principal); M79.662 Pain in left lower leg; Z87.81 Personal history of (healed) traumatic fracture
CPT/HCPCS: 73552; 73564; 73590

== ENCOUNTER 2025-04-18 14:00 | Outpatient (AMB) | payer MEDICARE, MEDICAID, SELFPAY ==
--- NOTE | 2025-04-18 14:38 | ORTHONT_ITS ---
Vital signs 04/18/25 14:39 Height 1.7 m Height Method Stated Weight 96.19 kg Weight Measurement Method Standing Scale BMI 33.3 BP 116/68 Blood Pressure Source Automatic Cuff Blood Pressure Location Left Upper Arm Position Sitting Respiration 18 Pulse 60 Pulse Source Monitor Temp 97.4 F Temp Source Temporal Artery Scan Pulse Oximetry (%) 92 L Oxygen Delivery Method Room Air Med/Allergies Allergies & Medications Allergies amoxicillin Allergy (Severe, Verified 04/18/25 14:39) ANAPHYLAXIS ibuprofen Allergy (Severe, Verified 04/18/25 14:39) Swelling of Lip/Tongue/Throat naproxen (From Aleve) Allergy (Severe, Verified 04/18/25 14:39) Swelling of Lip/Tongue/Throat ALLI Allergy (Severe, Uncoded 04/18/25 14:39) Rash Medication Reconciliation cyclobenzaprine 10 mg tablet 10 mg PO BID 04/11/24 [History Confirmed 04/18/25] escitalopram oxalate 10 mg tablet (Lexapro) 10 mg PO QDAY 04/11/24 [History Confirmed 04/18/25] gabapentin 100 mg capsule 200 mg PO TIDWM 04/11/24 [History Confirmed 04/18/25] hydrocodone 10 mg-acetaminophen 325 mg tablet 1 tab PO Q4H PRN Pain (Scale Score 4-6) 04/11/24 [History Confirmed 04/18/25] hydrocodone 5 mg-acetaminophen 325 mg tablet 1 tab PO Q4H PRN Pain (Scale Score 1-3) 04/11/24 [History Confirmed 04/18/25] levothyroxine 100 mcg capsule 100 mcg PO ACBR 04/11/24 [History Confirmed 04/18/25] meclizine 25 mg tablet 25 mg PO Q6H PRN dizziness 04/11/24 [History Confirmed 04/18/25] multivitamin 1 tab PO QAM 04/11/24 [History Confirmed 04/18/25] acetaminophen 300 mg-codeine 30 mg tablet 1 tab PO BID PRN pain #7 tabs 05/01/24 [Rx Confirmed 04/18/25] apixaban 5 mg tablet (Eliquis) 5 mg PO Q12H #30 tabs 05/01/24 [Rx Confirmed 04/18/25] doxycycline hyclate 100 mg tablet 100 mg PO BID #14 tabs 11/16/24 [Rx Confirmed 04/18/25] methylprednisolone 4 mg tablets in a dose pack (Medrol (Omar)) See Rx Instructions PO PER PKG DIR #21 tabs 04/18/25 [Rx] Exam Exam Patient is in no acute distress and is cooperative with the examination today. Patient has a normal mood and affect. Breathing is nonlabored. In no respiratory distress. Bilateral extremities were evaluated and demonstrates sensation intact to light touch. Palpable pedal pulses are present. No significant edema is present. Left hip and knee incisions are clean dry intact. Range of motion is 5 to 80 degrees. Sensations intact to light touch X-rays demonstrate a nail plate combo with good interval healing of the fracture site Assessment and Plan Problem List (1) Femur fracture: Qualifiers: Femur location: shaft Status: Acute Plan: Patient is a 54-year-old female with a left distal femur fracture status post open reduction total fixation and nail plate combo. SHe has been weightbearing as tolerated. She is doing well and is not using a walker or cane. She would like a cortisone injection today. She has great relief with the last injection She has a lot of numbness and tingling rating down her left leg. She would like to try a steroid pack for her lumbar radiculopathy which I think is reasonable Recommend knee cortisone injection as patient would like to proceed with conservative treatment at this time. The risks and benefits of the procedure were reviewed with the patient and patient gave verbal consent to continue with the procedure. Procedure: performed by Dr. Hernandez Using sterile technique the left knee was thoroughly prepped with alcohol, and approximately 1 cc of Kenalog 40 mg/mL and 4 cc of 1% lidocaine was injected without resistance into the medial tibial femoral joint space. The patient tolerated the procedure. Office Procedures GNS Level of Care Nursing/Assessment Patient Status: Established Patient Nursing Assessment/Reassesment: Medication Reconciliation, Update PMH in EMR and Vital Signs Coordination of Care: Complex Care and Chronic Disease 1-5, Education Complex Pt/Fam, Consent,records obtained, informed consent, Results/Orders obtained and Staff clarify orders Established Patient Charge Established Patient Point Assignment: 95 Established Patient Point Charge: EP Level 3 (80-115) Surgical Proc/IM SQ injection Major Surgical Procedure: Yes (KNEE INJECTION) Medication Given Medication Given Medication Given: Yes Documented Dose Given: 4 Route: Infiitration Medication Given Medication Given Medication Given: Yes Documented Dose Given: 1 Route: Infiitration Office Meds Xylocaine 10 mg/mL (1 %) injection solution Performing Provider: Chauncey Hernandez MD Performing Location: [facility] Administered by: Chauncey Hernandez MD on 04/18/25 14:50 Dose Route Admin Location Dispensed Lot Number Expiration Date [facility] Concrete Block Plant Supervisor 20 mL Infiltration 20 mL [id number] 03/01/28 66020-301-67 [facility] triamcinolone acetonide 40 mg/mL suspension for injection Performing Provider: Chauncey Hernandez MD Performing Location: [facility] Administered by: Chauncey Hernandez MD on 04/18/25 14:50 Dose Route Admin Location Dispensed Lot Number Expiration Date [facility] Concrete [employer] Plant Supervisor 40 mg intra-articular KNEE 1 mL [id number] 05/31/26 63272-134-50 DINO JOYA [place] Intake Visit Data Collection New Patient or Established: Established Patient (seen at [facility] within 3 years) Reason for Visit:: LEFT KNEE INJ/XRAY RESULTS/REQ BRACE Seen by Clinical Staff ONLY (RN/MA): No PCP or OBGYN visit in last 3 months: Yes Hx Now: No Do You Feel Safe at Home: Yes Authorities Contacted: N/A Questionairres Past Medical History Past Medical History Have you ever been diagnosed with any of the following: Cardiology Problems Congestive Heart Failure: No Hypertension: Yes Respiratory Problems Chronic Obstructive Pulmonary Disease (COPD): No Asthma: No Smoking: No Smoking Exposure: No Genital/Urinary Problems Renal Disease: No Endocrine Problems Diabetes Mellitus Type 1: No Diabetes Mellitus Type 2: No Blood Problems Sickle Cell Disease: No Other Problems Blood Transfusions: Yes Subjective Visit Visit for: follow up visit, hip, knee, x-rays and injections Immunization / Flu Flu Vaccine in the Last 12 Months: No Flu Vaccine Exclusion Criteria: No Exclusion Criteria History of Present Illness Chief complaint: F/U XRAYS RESULTS Cindy is a pleasant 54-year-old female with left hip and thigh and knee pain. She had a extensive surgery 8 months ago including a nail plate combo for a comminuted distal femur fracture. She has been in [place] for a while since we last saw her. She has been doing well with pt Pain Pain level (0-10): 8 Pain duration: CONSTANT Pain location: anterior Pain quality: dull and aching Pain timing: increases with activity Associated signs & symptoms: none Ambulatory data Ambulatory device: none Treatments Number of previous injections: 1 Improvement with previous injections: Yes Improvement with PT: No Improvement with NSAIDS: no Review of Systems Review of Systems: All systems negative unless otherwise noted in HPI.
[2025-04-18 14:39] VITALS: BP 116/68; PULSE 60; RESP 18; TEMP 36.3; O2SAT 92; BMI 33.3
== END 2025-04-18 14:53 | disposition home or self-care (01) ==
LOC: HODSRG 14:00
PROVIDERS: PCP Nurse Practitioner Family; Referring Provider Nurse Practitioner Family; Supervising Provider Orthopaedic Surgery Adult Reconstructive Orthopaedic Surgery; Visit Provider Orthopaedic Surgery Adult Reconstructive Orthopaedic Surgery
DX: S72.402D Unspecified fracture of lower end of left femur, subsequent encounter for closed fracture with routine healing (principal); X58.XXXD Exposure to other specified factors, subsequent encounter; R20.0 Anesthesia of skin; R20.2 Paresthesia of skin; M54.16 Radiculopathy, lumbar region
CPT/HCPCS: 20610; 99213; J3301; J3490; G0463

== ENCOUNTER → 2025-04-25 | Outpatient (CLI) | payer MEDICARE, MEDICAID, SELFPAY ==
--- NOTE | 2025-04-25 07:30 | XR_ITS ---
Examination: CT brain head without contrast. 2-D sagittal coronal reconstructions Date and time of exam:April 25, 2025 0742 hours Comparison September 17, 2024: Headaches dizziness beginning 2 months ago, history ventricular peritoneal shunt 9 months ago, diagnosis Arnold-Chiari syndrome CTDI: vol (mGy):51.5 DLP: (mGycm):1111 Technique: Multiple CT axial sections of the brain have been obtained, 5 mm slice thickness. Contrast has not been administered. 2-D sagittal, coronal reconstructions have been obtained Low dose protocols were performed. One or more of the following dose reduction techniques were used; automated exposure control, adjustment of the mA and/or KV according to patient size, use of iterative reconstruction technique. Findings: No significant ventricular enlargement. Stable position right shunt tube right lateral ventricle Intra-axial or extra-axial hemorrhage density is not seen. No mass effect or midline shift Basal cisterns are not remarkable. Fourth ventricle is midline. Cranial vault intact. Impression: No interval ventricular enlargement Negative for acute hemorrhage, mass effect or midline shift
[2025-04-25 09:11] LABS: Free T4 (Free Thyroxine) 0.32 ng/dL (0.89-1.76); Thyroid Stimulating Hormone 33.95 uIU/mL (0.55-4.78)
== END | disposition home or self-care (01) ==
DX: Q07.00 Arnold-Chiari syndrome without spina bifida or hydrocephalus (principal); R51.0 Headache with orthostatic component, not elsewhere classified; Z98.2 Presence of cerebrospinal fluid drainage device; E03.9 Hypothyroidism, unspecified
CPT/HCPCS: 36415; 70450; 84439; 84443